=== PATIENT | female | born 1975 | race American Indian/Alaskan Native ===

== ENCOUNTER 2017-12-25 02:45 | Emergency (ER) | payer OTHER ==
[2017-12-25 04:30] LABS: Basophils # (Auto) 0.1 K/mm3 (0.0-0.1); Basophils % (Auto) 0.7 % (0.0-1.8); Eosinophils # (Auto) 0.1 K/mm3 (0.0-0.4); Hematocrit 37.8 % (30.3-42.9); Hemoglobin 12.1 gm/dl (10.1-14.3); Lymphocytes # (Auto) 1.5 K/mm3 (1.2-5.4); Lymphocytes % (Auto) 18.1 % (13.4-35.0); Mean Corpuscular HGB Conc 32 % (30-34); Mean Corpuscular Hemoglobin 29 pg (28-32); Mean Corpuscular Volume 89 fl (79-97); Monocytes # (Auto) 0.5 K/mm3 (0.0-0.8); Monocytes % (Auto) 6.5 % (0.0-7.3); Platelet Count 295 K/mm3 (140-440); Red Blood Count 4.25 M/mm3 (3.65-5.03); Red Cell Distribution Width 12.9 % (13.2-15.2)
[2017-12-25 04:32] LABS: Bilirubin,Urine NEG (Negative); Blood,Urine NEG (Negative); Color,Urine Yellow (Yellow); Mucus,Urine FEW /HPF; Protein,Urine <15 mg/dL mg/dL (Negative); Urobilinogen,Urine < 2.0 mg/dL (<2.0)
[2017-12-25 04:53] LABS: Alanine Aminotransferase 10 units/L (7-56); Albumin 3.9 g/dL (3.9-5); BUN/Creatinine Ratio 18; Blood Urea Nitrogen 9 mg/dL (7-17); Calcium 8.9 mg/dL (8.4-10.2); Hemolysis Index 6
--- NOTE | 2017-12-25 08:08 | Ultrasound Report ---
ULTRASOUND OB LESS THAN 14 WEEKS FETUS HISTORY: Abdominal pain during . COMPARISON: None. TECHNIQUE: Transabdominal ultrasound with color doppler interrogation. FINDINGS: Uterus: The uterus measures 13 x 7 x 9 cm. A fundal fibroid measures 4.8 x 2.5 x 2.7 cm. The cervix is obscured. Endometrium: An intrauterine is identified with heart rate measuring 166 beats per minute. [place]-rump length measures 31.1 mm which correlates with a 10 week, 0 day . Estimated due date 07/23/18.. Right ovary: 3.8 x 3.0 x 2.2 cm. There are 2 cysts in the right ovary measuring 1.3 cm and 1.4 cm. Left ovary: 3.5 x 1.8 x 2.2 cm. No focal abnormality. No pelvic fluid or mass is identified. Normal color doppler interrogation. IMPRESSION: Viable, single intrauterine as described. Small right ovarian cysts.
--- NOTE | 2017-12-25 10:03 | Emergency Department Report ---
ED HPI - General Chief complaint: Abdominal Pain Stated complaint: STOMACH PAIN Time Seen by Provider: 12/25/17 09:59 Source: patient, RN notes reviewed Mode of arrival: Ambulatory Limitations: No Limitations - History of Present Illness Initial comments: This is a 42-year-old female who was previously unknown to this provider. She is 7, para 3. Her [employer] REPORTING ADVISOR doctor is Dr. echevarria. She thinks her last period is the beginning of October. She presents to the ER with a complaint of constipation and lower abdominal cramping. She vomited 3, nonbloody and nonbilious. There is no right lower quadrant pain. There is no migration of pain. Patient reports passing gas and having a bowel movement prior to my arrival. She reports that these have subsequently improved and resolved her pain. She does not have any pain at this time. MD Complaint: abdominal pain -: Gradual, hour(s) Location: abdomen Radiation: none Severity: mild Quality: cramping Consistency: now resolved Improves with: rest, other (passing gas, having a bowel movement) Worsens with: other (palpation) Associated symptoms: nausea/vomiting, abdominal pain. denies: vaginal bleeding , vaginal discharge, dysuria, headache, vision changes, malaise, dysparuenia, rash, seizure, shortness of breath, syncope, weakness Vaginal bleeding: none :: No OB History - Current : no complications OB History - Previous Pregnancies: no complications Pre-parul care: followed by OB, previous ultrasound confi - Related Data Previous Rx's Medication Instructions Recorded Last Taken Type Cephalexin [Keflex] 500 mg PO Q12HR #20 cap 01/24/16 Unknown Rx hydrOXYzine PAMOATE [Vistaril] 25 mg PO Q6HR PRN #12 capsule 01/24/16 Unknown Rx Doxylamine Succinate/Vit B6 1 each PO QHS PRN #30 tablet. 12/25/17 Unknown Rx [Briseyda Patel 10-10 mg Tablet] Misty Root [Misty] 250 mg PO QID PRN #30 capsule 12/25/17 Unknown Rx Vit Calc,Iron,Folic 1 each PO QDAY #30 tablet 12/25/17 Unknown Rx [ Vitamins] Allergies Allergy/AdvReac Type Severity Reaction Status Date / Time No Known Allergies Allergy Unverified 01/24/16 15:09 ED Review of Systems ROS: Stated complaint: STOMACH PAIN Other details as noted in HPI Comment: All other systems reviewed and negative ED Past Medical Hx - Past Medical History Previous Medical History?: No - Surgical History Additional Surgical History: c sections - Social History Smoking Status: Current Some Day Smoker Substance Use Type: Alcohol, Marijuana - Medications Home Medications: Home Medications Medication Instructions Recorded Confirmed Last Taken Type Cephalexin [Keflex] 500 mg PO Q12HR #20 cap 01/24/16 Unknown Rx hydrOXYzine PAMOATE [Vistaril] 25 mg PO Q6HR PRN #12 capsule 01/24/16 Unknown Rx Doxylamine Succinate/Vit B6 1 each PO QHS PRN #30 tablet. 12/25/17 Unknown Rx [Diclegis Dr 10-10 mg Tablet] Misty Root [Misty] 250 mg PO QID PRN #30 capsule 12/25/17 Unknown Rx Vit Calc,Iron,Folic 1 each PO QDAY #30 tablet 12/25/17 Unknown Rx [ Vitamins] ED Physical Exam - General Limitations: No Limitations General appearance: alert, in no apparent distress - Head Head exam: Present: atraumatic, normocephalic - Eye Eye exam: Present: normal appearance, EOMI. Absent: nystagmus - ENT ENT exam: Present: normal exam, normal orophraynx, mucous membranes moist, normal external ear exam - Neck Neck exam: Present: normal inspection, full ROM - Respiratory Respiratory exam: Present: normal lung sounds bilaterally. Absent: respiratory distress - Cardiovascular Cardiovascular Exam: Present: regular rate, normal rhythm, normal heart sounds. Absent: systolic murmur, diastolic murmur, rubs, gallop - GI/Abdominal GI/Abdominal exam: Present: soft, normal bowel sounds, other (there is no right upper quadrant tenderness. There is no right lower quadrant tenderness. There is a negative Jarrell sign. There is a negative Rovsing sign.). Absent: distended, tenderness, guarding, rebound, rigid, pulsatile mass - Extremities Exam Extremities exam: Present: normal inspection, full ROM, normal capillary refill. Absent: tenderness, pedal edema, joint swelling, calf tenderness - Back Exam Back exam: Present: normal inspection, full ROM. Absent: tenderness, CVA tenderness (R), paraspinal tenderness, vertebral tenderness - Neurological Exam Neurological exam: Present: alert, oriented X3, CN II-XII intact, normal gait, other (Extraocular movements intact. Tongue midline. No facial droop. Facial sensation intact to light touch in the V1, V2, V3 distribution bilaterally. 5 and 5 strength in 4 extremities.. Sensation is intact to light touch in 4 extremities.). Absent: motor sensory deficit - Psychiatric Psychiatric exam: Present: normal affect, normal mood - Skin Skin exam: Present: warm, dry, intact, normal color. Absent: rash ED Course Vital Signs 12/25/17 12/25/17 03:35 10:05 Temperature 98.5 F 98.5 F Pulse Rate 85 82 Respiratory 17 16 Rate Blood Pressure 116/88 Blood Pressure 143/78 [Right] O2 Sat by Pulse 100 98 Oximetry ED Medical Decision Making - Lab Data Result diagrams: 12/25/17 04:10 12/25/17 04:10 Vital Signs 12/25/17 12/25/17 03:35 10:05 Temperature 98.5 F 98.5 F Pulse Rate 85 82 Respiratory 17 16 Rate Blood Pressure 116/88 Blood Pressure 143/78 [Right] O2 Sat by Pulse 100 98 Oximetry Lab Results 12/25/17 12/25/17 12/25/17 Range/Units 04:00 04:10 04:10 WBC 8.5 (4.5-11.0) K/mm3 RBC 4.25 (3.65-5.03) M/mm3 Hgb 12.1 (10.1-14.3) gm/dl Hct 37.8 (30.3-42.9) % MCV 89 (79-97) fl MCH 29 (28-32) pg MCHC 32 (30-34) % RDW 12.9 L (13.2-15.2) % Plt Count 295 (140-440) K/mm3 Lymph % (Auto) 18.1 (13.4-35.0) % [place] % (Auto) 6.5 (0.0-7.3) % Eos % (Auto) 1.0 (0.0-4.3) % Baso % (Auto) 0.7 (0.0-1.8) % Lymph # 1.5 (1.2-5.4) K/mm3 [place] # 0.5 (0.0-0.8) K/mm3 Eos # 0.1 (0.0-0.4) K/mm3 Baso # 0.1 (0.0-0.1) K/mm3 Seg Neutrophils % 73.7 H (40.0-70.0) % Seg Neutrophils # 6.2 (1.8-7.7) K/mm3 Sodium 136 L (137-145) mmol/L Potassium 4.5 (3.6-5.0) mmol/L Chloride 99.3 (98-107) mmol/L Carbon Dioxide 24 (22-30) mmol/L Anion Gap 17 mmol/L BUN 9 (7-17) mg/dL Creatinine 0.5 L (0.7-1.2) mg/dL Estimated GFR > 60 ml/min BUN/Creatinine Ratio 18 % Glucose 92 (65-100) mg/dL Calcium 8.9 (8.4-10.2) mg/dL Total Bilirubin 0.50 (0.1-1.2) mg/dL AST 15 (5-40) units/L ALT 10 (7-56) units/L Alkaline Phosphatase 37 (35-129) units/L Total Protein 7.4 (6.3-8.2) g/dL Albumin 3.9 (3.9-5) g/dL Albumin/Globulin Ratio 1.1 % HCG, Qual (Negative) HCG, Quant (0-4) mIU/mL Urine Color Yellow (Yellow) Urine Turbidity Clear (Clear) Urine pH 5.0 (5.0-7.0) Ur Specific [place] 1.021 (1.003-1.030) Urine Protein <15 mg/dl (Negative) mg/dL Urine Glucose (UA) Neg (Negative) mg/dL Urine Ketones Neg (Negative) mg/dL Urine Blood Neg (Negative) Urine Nitrite Neg (Negative) Urine Bilirubin Neg (Negative) Urine Urobilinogen < 2.0 (<2.0) mg/dL Ur Leukocyte Esterase Neg (Negative) Urine WBC (Auto) 1.0 (0.0-6.0) /HPF Urine RBC (Auto) 2.0 (0.0-6.0) /HPF U Epithel Cells (Auto) 2.0 (0-13.0) /HPF Urine Mucus Few /HPF 12/25/17 12/25/17 Range/Units 04:10 04:10 WBC (4.5-11.0) K/mm3 RBC (3.65-5.03) M/mm3 Hgb (10.1-14.3) gm/dl Hct (30.3-42.9) % MCV (79-97) fl MCH (28-32) pg MCHC (30-34) % RDW (13.2-15.2) % Plt Count (140-440) K/mm3 Lymph % (Auto) (13.4-35.0) % [place] % (Auto) (0.0-7.3) % Eos % (Auto) (0.0-4.3) % Baso % (Auto) (0.0-1.8) % Lymph # (1.2-5.4) K/mm3 [place] # (0.0-0.8) K/mm3 Eos # (0.0-0.4) K/mm3 Baso # (0.0-0.1) K/mm3 Seg Neutrophils % (40.0-70.0) % Seg Neutrophils # (1.8-7.7) K/mm3 Sodium (137-145) mmol/L Potassium (3.6-5.0) mmol/L Chloride (98-107) mmol/L Carbon Dioxide (22-30) mmol/L Anion Gap mmol/L BUN (7-17) mg/dL Creatinine (0.7-1.2) mg/dL Estimated GFR ml/min BUN/Creatinine Ratio % Glucose (65-100) mg/dL Calcium (8.4-10.2) mg/dL Total Bilirubin (0.1-1.2) mg/dL AST (5-40) units/L ALT (7-56) units/L Alkaline Phosphatase (35-129) units/L Total Protein (6.3-8.2) g/dL Albumin (3.9-5) g/dL Albumin/Globulin Ratio % HCG, Qual Positive (Negative) HCG, Quant [id number] H (0-4) mIU/mL Urine Color (Yellow) Urine Turbidity (Clear) Urine pH (5.0-7.0) Ur Specific [place] (1.003-1.030) Urine Protein (Negative) mg/dL Urine Glucose (UA) (Negative) mg/dL Urine Ketones (Negative) mg/dL Urine Blood (Negative) Urine Nitrite (Negative) Urine Bilirubin (Negative) Urine Urobilinogen (<2.0) mg/dL Ur Leukocyte Esterase (Negative) Urine WBC (Auto) (0.0-6.0) /HPF Urine RBC (Auto) (0.0-6.0) /HPF U Epithel Cells (Auto) (0-13.0) /HPF Urine Mucus /HPF - Radiology Data Radiology results: report reviewed, image reviewed rint Report Referring Physician: MIKE ANDERSEN Patient Name: RUBEN RIVERS Date of : 1975 Sex: Female Report Date: 2017-12-25 Report Status: Finalized Findings [facility] [address] [place] [address] Ultrasound Report Signed Patient: RUBEN RIVERS MR#: [id number] : 1975 Acct:[id number] Age/Sex: 42 / F ADM Date: 12/25/17 Loc: ED Attending Dr: Ordering Physician: MIKE ANDERSEN MD Date of Service: 12/25/17 Procedure(s): US OB <= 14 weeks fetus Accession Number(s): [id number] cc: MIKE ANDERSEN MD ULTRASOUND OB LESS THAN 14 WEEKS FETUS HISTORY: Abdominal pain during . COMPARISON: None. TECHNIQUE: Transabdominal ultrasound with color doppler interrogation. FINDINGS: Uterus: The uterus measures 13 x 7 x 9 cm. A fundal fibroid measures 4.8 x 2.5 x 2.7 cm. The cervix is obscured. Endometrium: An intrauterine is identified with heart rate measuring 166 beats per minute. [place]-rump length measures 31.1 mm which correlates with a 10 week, 0 day . Estimated due date 07/23/18.. Right ovary: 3.8 x 3.0 x 2.2 cm. There are 2 cysts in the right ovary measuring 1.3 cm and 1.4 cm. Left ovary: 3.5 x 1.8 x 2.2 cm. No focal abnormality. No pelvic fluid or mass is identified. Normal color doppler interrogation. IMPRESSION: Viable, single intrauterine as described. Small right ovarian cysts. Transcribed By: TTR Dictated By: SHANNAN VAZQUEZ JR, MD Electronically Authenticated By: SHANNAN VAZQUEZ JR, MD Signed Date/Time: 12/25/17757 DD/ 5 TD/TT: 12/25/17757 - Medical Decision Making Differential diagnosis, including but not limited to: , constipation, Assessment and plan: 42-year-old female with constipation now resolved. There is no abdominal tenderness. There is no right lower quadrant tenderness. Laboratory studies unremarkable. Ultrasound appropriate and within normal limits. Patient given diet and lifestyle modification instructions. She will be discharged with appropriate nausea medication for . She is tolerating oral feeds in the emergency department. Return precautions are reviewed. Critical care attestation.: If time is entered above; I have spent that time in minutes in the direct care of this critically ill patient, excluding procedure time. ED Disposition Clinical Impression: History of constipation, Disposition: TO HOME OR SELFCARE Is pt being admited?: No Does the pt Need Aspirin: No Condition: Stable Instructions: Constipation (ED) Additional Instructions: Increase water consumption to 6-8 cups of water per day. Eat plenty of fruits, fibers, vegetables. Follow up with your FINANCIAL REPORTING ADVISOR doctor within the next 2 weeks. Symptoms of constipation typically take weeks to months to improve. Please note that blood pressure was elevated. This should be followed up by your OB/ [employer] doctor within the recommended timeframe. Return to the ER right away with new pain, worsened pain, migration of pain, fevers, chills, lethargy, irritability, projectile vomiting, change in mental status, confusion, inability to tolerate liquid feeds. Referrals: PRIMARY CARE, [Primary Care Provider] - 3-5 Days
[2017-12-25 11:18] VITALS: BP 129/88
== END 2017-12-25 11:20 | disposition home or self-care (01) ==
LOC: ED 02:45
DX: O26.891 Other specified pregnancy related conditions, first trimester (principal); Z3A.01 Less than 8 weeks gestation of pregnancy; Z72.0 Tobacco use; F12.90 Cannabis use, unspecified, uncomplicated
CPT/HCPCS: 36415; 76801; 80053; 81001; 84702; 84703; 85025